=== PATIENT | male | born 1995 | race African-American/Black ===

== ENCOUNTER 2017-07-26 23:22 | Emergency (ER) | payer BC ==
[~2017-07-26] VITALS: Ht 177.8 cm; Wt 77.1 kg
[2017-07-26 23:40] VITALS: BP 137/91
[2017-07-26] MEDS ORDERED: LIDOCAINE 2% 20 ML MDV ONE (23:59)
[2017-07-27] MEDS ORDERED: LIDOCAINE 1% INJ 50 ML MDV IJ ONE
[2017-07-27] MEDS ORDERED: TDAP [DIPH/PERTUSSIS/TET] 0.5 ML VIAL IM ONE ×2 (00:03)
[2017-07-27] MEDS ORDERED: HYDROCODONE/APAP 5/325MG 1 EACH TABLET ONE ×2 (00:03→00:49)
[2017-07-27] MEDS ORDERED: HYDROCODONE/APAP 5/325MG 1 EACH TABLET PO ONE ×2 (01:00)
== END 2017-07-27 00:59 | disposition home or self-care (01) ==
LOC: ER 23:26
DX: S61.212A Laceration without foreign body of right middle finger without damage to nail, initial encounter (principal); S61.214A Laceration without foreign body of right ring finger without damage to nail, initial encounter; S61.216A Laceration without foreign body of right little finger without damage to nail, initial encounter; S61.011A Laceration without foreign body of right thumb without damage to nail, initial encounter; W26.0XXA Contact with knife, initial encounter; Y93.89 Activity, other specified; Y92.89 Other specified places as the place of occurrence of the external cause; Y99.8 Other external cause status; Z88.8 Allergy status to other drugs, medicaments and biological substances
CPT/HCPCS: 12004; 90471; 90715; 99284; A4606; A6402; J3490; Z7610

== ENCOUNTER 2017-07-31 18:09 | Emergency (ER) | payer BC ==
[~2017-07-31] VITALS: Ht 175.3 cm; Wt 77.1 kg
[2017-07-31 19:05] VITALS: BP 126/90
== END 2017-07-31 19:59 | disposition home or self-care (01) ==
LOC: ER 18:16
DX: S61.411D Laceration without foreign body of right hand, subsequent encounter (principal); Z88.1 Allergy status to other antibiotic agents
CPT/HCPCS: 99281; A4606; Z7610; Z7502